=== PATIENT | male | born 1990 | race Caucasian/White ===

== ENCOUNTER → 2019-10-01 10:26 | Outpatient (BNVA) | payer BC, SELFPAY | PROVIDERS: Visit Provider Family Medicine | DX: R50.9 Fever, unspecified (principal); J10.1 Influenza due to other identified influenza virus with other respiratory manifestations | CPT/HCPCS: 87804 ==

== ENCOUNTER → 2024-06-05 16:03 | Outpatient (BNVA) | payer OTHER, SELFPAY | PROVIDERS: Visit Provider Registered Nurse Neonatal Intensive Care | DX: R50.9 Fever, unspecified (principal); R05.9 Cough, unspecified; R91.8 Other nonspecific abnormal finding of lung field | CPT/HCPCS: 71046; 87400; 87426 ==

== ENCOUNTER 2025-01-27 08:16 | Emergency (ER) | payer OTHER, SELFPAY ==
[2025-01-27 08:20] VITALS: PULSE 97; RESP 20; TEMP 36.6; O2SAT 95; BMI 31.4
--- NOTE | 2025-01-27 08:24 | USR_ITS ---
PROCEDURE INFORMATION: Exam: US Left Limited Joint or Other Non-Vascular Extremity Structure Exam date and time: 01/27/2025 9:34 AM Age: 35 years old Clinical indication: Pain; Thigh; Left; Additional info: Abscess L thigh TECHNIQUE: Imaging protocol: US left limited joint or other nonvascular extremity structure. Real-time ultrasound with image documentation. Exam focused on the area of clinical interest. COMPARISON: CR XR foot LT min 3V* [id number] 01/27/2025 9:04 AM FINDINGS: Soft tissues: Unremarkable. No loculated collections. Multiple morphologically normal appearing lymph nodes in the left inguinal region, the largest of these is 1.7 x 0.8 cm in size. US/US soft tissue/extremity [id number] IMPRESSION: Visible inguinal lymph nodes.
--- NOTE | 2025-01-27 08:24 | XRR_ITS ---
PROCEDURE INFORMATION: Exam: XR Left Foot Exam date and time: 01/27/2025 9:04 AM Age: 35 years old Clinical indication: Pain; Foot; Left; Additional info: Abscess TECHNIQUE: Imaging protocol: Radiologic exam of the left foot. Views: 3 or more views. COMPARISON: No relevant prior studies available. FINDINGS: Bones/joints: Normal. No fracture or dislocation. Soft tissues: Normal. XR/XR foot LT min 3V* [id number] IMPRESSION: No acute findings.
--- NOTE | 2025-01-27 08:39 | W.ED.SKABFB ---
HPI - Skin/Abscess/Foreign Bdy General: Chief complaint: Skin/Abscess/Foreign Body Stated complaint: abcess on leg sent from urgent care Time Seen by Provider: 01/27/25 08:23 History of Present Illness: 35-year-old male presents emergency room from urgent care. 2 weeks ago patient had a cut from a [place]. This was at the lateral aspect of the left foot adjacent to the fifth MTP joint. Patient was treated with antibiotics. He returns to the emergency room today after going to urgent care he has a palpable nodule medial proximal left thigh with some slight overlying lymphangitic erythema. No palpable fluctuant abscess. Little bit of lymphangitic streaking from of the healing wound from the laceration [place]. Patient was previously on Bactrim and mupirocin. There is no culture from the wound on the chart. Patient is not diabetic has no history of peripheral vascular disease. Associated symptoms: Deny chills or fever(s) Related Data Previous Rx's ?Medication ?Instructions ?Recorded mupirocin 2 % topical ointment 1 applic topical BID #22 grams 01/25/25 (Centany) sulfamethoxazole 800 1 tab PO BID 10 days #20 tabs 01/25/25 mg-trimethoprim 160 mg tablet (Bactrim DS) diclofenac sodium 75 mg 75 mg PO Q12H PRN pain #20 tabs 01/27/25 tablet,delayed release Allergies Allergy/AdvReac Type Severity Reaction Status Date / Time No Known Allergies Allergy Verified 01/27/25 07:45 Review of Systems Const: Denies: fever(s) or chills Card: Denies: chest pain Resp: Denies: dyspnea GI: Denies: abdominal pain : Denies: dysuria, urinary frequency or urinary urgency Musc: Denies: neck pain or back pain Skin/Breast: Denies: rash PFSH ED PFSH: Medical History (Updated 02/04/25 @ 00:00 by PAUL Siddiqi) Phlebitis Abscess of lower leg Social History Smoking and tobacco/nicotine status: current some day tobacco/nicotine user Alcohol intake: current Substance/Drug Use: never Physical Exam Const: COMMON NORMALS: no acute distress GENERAL APPEARANCE: cooperative and comfortable ORIENTATION/CONSCIOUSNESS: Yes awake, Yes oriented to person, Yes oriented to place and Yes oriented to time HENMT: COMMON NORMALS: normocephalic, atraumatic and hearing grossly normal bilaterally HEAD & SCALP: normocephalic and atraumatic Resp: COMMON NORMALS: normal respiratory effort, No retractions, No use of accessory muscles and clear to auscultation bilaterally AUSCULTATION: clear to auscultation bilaterally Cardio: COMMON NORMALS: regular rate, regular rhythm and No murmurs present (Cardio) RATE: regular rate RHYTHM: regular rhythm GI: COMMON NORMALS: Soft to palpation and No hepatosplenomegaly present AUSCULTATION: Yes normoactive bowel sounds PALPATION: Yes Soft to palpation, No Tenderness to palpation present (GI), No Guarding due to palpation present (GI) and Yes No hepatosplenomegaly present Extremity: COMMON NORMALS: normal to inspection, capillary refill normal, no clubbing, cyanosis or edema, no calf tenderness and no pedal edema Neuro: SENSORIUM/ORIENTATION: Yes oriented to person, Yes oriented to place and Yes oriented to time Skin: COMMON NORMALS: no rashes or lesions noted GENERAL SKIN EXAM: no rashes or lesions noted Course Vital Signs: Vital signs: Vital Signs Temperature 97.9 F 01/27/25 08:20 Pulse Rate 69 01/27/25 10:48 Respiratory Rate 16 01/27/25 10:48 Blood Pressure 124/80 01/27/25 10:48 Pulse Oximetry 95 01/27/25 10:48 Oxygen Delivery Me thod Room Air 01/27/25 08:20 MDM - Skin/Abscess/Foreign Bdy Medicial Decision Making No abscess no DVT on ultrasound. Will treat for cellulitis. Discharge patient home on diclofenac continue the medications as [facility] and [facility]up primary care as needed Lab Data 01/27/25 08:49 01/27/25 08:49 Radiology Impressions Foot X-Ray 01/27/25 08:24 IMPRESSION: No acute findings. Soft Tissue Ultrasound 01/27/25 08:24 IMPRESSION: Visible inguinal lymph nodes. Laboratory Results WBC 8.30 10^3/uL (3.29-11.43) 01/27/25 08:49 RBC 5.04 10^6/uL (3.85-5.65) 01/27/25 08:49 Hgb 16.20 g/dL (11.27-16.99) 01/27/25 08:49 Hct 46.6 % (37-53) 01/27/25 08:49 MCV 92.5 fl (82-101) 01/27/25 08:49 MCH 32.1 pg (27-33) 01/27/25 08:49 MCHC 34.8 g/dL (30-55) 01/27/25 08:49 RDW 12.3 % (12.1-15.1) 01/27/25 08:49 Plt Count 229 10^3/cmm (157-399) 01/27/25 08:49 MPV 10.0 fL (7.4-10.4) 01/27/25 08:49 Neut % (Auto) 67.2 % 01/27/25 08:49 Lymph % (Auto) 21.9 % 01/27/25 08:49 [place] % (Auto) 9.0 % 01/27/25 08:49 Eos % (Auto) 0.7 % 01/27/25 08:49 Baso % (Auto) 0.6 % 01/27/25 08:49 Neut # (Auto) 5.57 10^3/uL (1.8-7.7) 01/27/25 08:49 Lymph # (Auto) 1.8 10^3/uL (0.8-4.8) 01/27/25 08:49 [place] # (Auto) 0.8 10^3/uL (0.2-0.9) 01/27/25 08:49 Eos # (Auto) 0.1 10^3/uL (0.0-0.8) 01/27/25 08:49 Baso # (Auto) 0.1 10^3/uL (0.0-0.1) 01/27/25 08:49 Nucleated RBC % (auto) 0 % 01/27/25 08:49 Nucleated RBCs # 0.0 /100WBC 01/27/25 08:49 Sodium 141 mmol/L (136-145) 01/27/25 08:49 Potassium 4.2 mmol/L (3.5-5.1) 01/27/25 08:49 Chloride 105 mmol/L (98-107) 01/27/25 08:49 Carbon Dioxide 22 mmol/L (22-29) 01/27/25 08:49 Anion Gap 18.2 (5-19) 01/27/25 08:49 BUN 12 mg/dL (6-20) 01/27/25 08:49 Creatinine 1.0 mg/dL (0.7-1.2) 01/27/25 08:49 GFR Calculation 84.1 mL/min (90-130) L 01/27/25 08:49 Glucose 110 mg/dL (65-115) 01/27/25 08:49 Calculated Osmolality 292 mOsm/kg (285-295) 01/27/25 08:49 Lactic Acid 1.0 mmol/L (0.5-2.2) 01/27/25 08:49 Calcium 9.3 mg/dL (8.5-10.5) 01/27/25 08:49 Total Bilirubin 0.3 mg/dL (0.15-1.2) 01/27/25 08:49 AST 21 U/L (0-40) 01/27/25 08:49 ALT 34 U/L (0-41) 01/27/25 08:49 Alkaline Phosphatase 62 U/L (40-130) 01/27/25 08:49 C-Reactive Protein 36.4 mg/L (0.0-4.9) H 01/27/25 08:49 Total Protein 7.7 g/dL (6.6-8.7) 01/27/25 08:49 Albumin 4.7 g/dL (3.5-5.2) 01/27/25 08:49 Globulin 3.0 g/dL (1.3-4.6) 01/27/25 08:49 All radiology interpretation(s) finalized by discharge Discharge Plan Discharge Patient Disposition: Home Clinical Impression: Cellulitis and abscess of left leg, Lymphadenopathy Condition: Stable Prescriptions: New diclofenac sodium 75 mg tablet,delayed release (DR/EC) 75 mg PO Q12H PRN (Reason: pain) Qty: 20 0RF No Action sulfamethoxazole-trimethoprim [Bactrim DS] 800-160 mg tablet 1 tab PO BID 10 Days Qty: 20 0RF mupirocin [Centany] 2 % ointment 1 applic topical BID Qty: 22 0RF Discharge Orders: Discharge ED (Routine); Ordered 07/07/25 Ordered By: Bubba Ortez Discharge Diet: Usual diet Discharge Activity: Increase activity as tolerated Patient Instructions: Opioid Safety, Pain Management, Patient Portal & Kirsten Instructions Activity Restrictions/Additional Instructions: Thank you for choosing [employer] for your healthcare needs today. It is very important that you follow up as instructed or that you return to the Emergency Department should you have concerns or if your condition changes or worsens in any way. You are seen in the emergency room with complaints of redness and swelling in your left leg. Ultrasound did not show any blood clot in the leg. There is no abscess there is some lymph nodes that are enlarged. Recommend adjusting your antibiotic regimen increase your Bactrim to 2 tablets twice a day for 10 days additionally will add clindamycin 300 mg 1 4 times a day for 10 days. You are given pain medications. Elevate the leg is much as you are able apply moist heat to the areas of swelling and discomfort follow-up with your primary care doctor within the next 3 days. Print Language: German Coding Level of Care Code ED Clinical Nurse Leader for [facility]
--- NOTE | 2025-01-27 08:44 | USCV_ITS ---
Elia Swanson Age: 35 Gender: M : 1990 Exam Date: 01/27/2025 09:26 Ordering Phys: Bubba Ortez DO Technologist: Exam Location: [facility] [place] Indication: lt leg pain and swelling PROCEDURES: Venous duplex imaging was performed in only the left lower extremity. The following venous structures were evaluated: common femoral vein, profunda vein, proximal portion of the greater saphenous vein, superficial femoral vein, and the popliteal vein. In addition, the posterior tibial and peroneal trunk were evaluated. FINDINGS: Normal 2-D Doppler and augmentation and compressibility throughout the lower extremity venous structures. Additional imaging through the proximal calf veins also reveals no thrombus. Limited evaluation of the greater saphenous vein is patent with no thrombus. CONCLUSIONS No evidence of left lower extremity DVT. Andreas Guzman MD (Electronically Signed) Final Date: 27 January 2025 11:41 S
[2025-01-27 09:01] LABS: Hematocrit 46.6 % (37-53); Hemoglobin 16.20 g/dL (11.27-16.99); Mean Corpuscular HGB Conc 34.8 g/dL (30-55); Mean Corpuscular Hemoglobin 32.1 pg (27-33); Mean Corpuscular Volume 92.5 fl (82-101); Nucleated Red Blood Cells % 0 %; Platelet Count 229 10^3/cmm (157-399); Red Blood Count 5.04 10^6/uL (3.85-5.65); White Blood Count 8.30 10^3/uL (3.29-11.43)
[2025-01-27] MEDS: diphenhydrAMINE 50 mg/mL SDV 1mL 25 MG IVP (09:16)
[2025-01-27 09:30] LABS: Lactic Sepsis W/Reflex 1.0 mmol/L (0.5-2.2)
[2025-01-27 09:31] LABS: Alanine Aminotransferase 34 U/L (0-41); Albumin Level 4.7 g/dL (3.5-5.2); Alkaline Phosphatase 62 U/L (40-130); Anion Gap 18.2 (5-19); Aspartate Amino Transferase 21 U/L (0-40); Blood Urea Nitrogen 12 mg/dL (6-20); Calcium 9.3 mg/dL (8.5-10.5); Carbon Dioxide 22 mmol/L (22-29); Chloride 105 mmol/L (98-107); Creatinine Clr Calc Pharmacy 123.0324; Globulin 3.0 g/dL (1.3-4.6); Glucose 110 mg/dL (65-115); Osmolality Calculated 292 mOsm/kg (285-295); Potassium 4.2 mmol/L (3.5-5.1); Sodium 141 mmol/L (136-145); Total Protein 7.7 g/dL (6.6-8.7)
[2025-01-27 10:48] VITALS: BP 124/80; PULSE 69; RESP 16; O2SAT 95
== END 2025-01-27 10:47 | disposition home or self-care (01) ==
PROVIDERS: Emergency Provider Family Medicine
DX: L02.416 Cutaneous abscess of left lower limb (principal); L03.116 Cellulitis of left lower limb; R59.1 Generalized enlarged lymph nodes; Z72.0 Tobacco use
CPT/HCPCS: 36415; 73630; 76882; 80053; 83605; 85025; 86140; 87040; 93971; 96374; 99284; J1200